=== PATIENT | female | born 1940 | race Caucasian/White ===

== ENCOUNTER 2020-08-09 10:42 | Day surgery (SDC) | payer MEDICARE ==
[~2020-08-09] VITALS: Ht 162.6 cm; Wt 63.2 kg
[2020-08-09 11:22] VITALS: BP 151/74; PULSE 70; TEMP 97.4
[2020-08-09] MEDS ORDERED: VESICARE 5MG5 MG PO (11:28)
[2020-08-09] MEDS ORDERED: PRILOSEC 20MG20 MG PO (11:28)
[2020-08-09] MEDS ORDERED: NORVASC 5MG5 MG/TAB PO (11:29)
[2020-08-09] MEDS ORDERED: COZAAR 50MG50 MG/TAB PO (11:29)
[2020-08-09] MEDS ORDERED: ASPIRIN 81M81 MG/TA2 PO (11:31)
[2020-08-09 12:20] VITALS: BP 117/58; PULSE 60; TEMP 97.1
[2020-08-09 12:30] VITALS: BP 119/55; PULSE 59
[2020-08-09 12:45] VITALS: BP 118/71; PULSE 59
--- NOTE | 2020-08-09 13:17 | NUR ---
1220 Pt returns to [facility] 3 via cart. Pt ambulates from cart to recliner with RN assistance. Monitors on and alarms set. Call light within reach. Report received from DANICA Jacobo. Pt drowsy, but answers all questions appropriately. Pt requests muffin and juice. 1240 Pt taking food and drink well. No complications. 1305 Discharge instructions given to pt. All questions answered to her satisfaction. Handed to her are a thank you card and discharge information. 1317 Pt transferred out of the hospital via wheelchair and this RN assist to private vehicle driven by friend.
== END 2020-08-09 13:17 | disposition home or self-care (01) ==
LOC: SDCO 10:42
DX: K29.70 Gastritis, unspecified, without bleeding (principal); R13.10 Dysphagia, unspecified; K22.4 Dyskinesia of esophagus; K21.9 Gastro-esophageal reflux disease without esophagitis; K44.9 Diaphragmatic hernia without obstruction or gangrene; Q39.8 Other congenital malformations of esophagus; I10 Essential (primary) hypertension; M19.90 Unspecified osteoarthritis, unspecified site; Z79.82 Long term (current) use of aspirin; Z79.899 Other long term (current) drug therapy; Z90.89 Acquired absence of other organs
CPT/HCPCS: J2704; J7030